=== PATIENT | male | born 1970 | race Caucasian/White ===

== ENCOUNTER 2020-09-18 10:06 | Emergency (ER) | payer OTHER, SELFPAY ==
[2020-09-18 10:08] VITALS: BP 133/90; PULSE 84; RESP 14; TEMP 36.2; O2SAT 99
--- NOTE | 2020-09-18 11:26 | ED_ITS ---
HPI - Wound/Laceration History of Present Illness HPI narrative: 49 yo male presents [facility] ED c/o laceration. He accidentally stabbed himself in the right thigh with a utility knife. Minimal pain. initially difficult to control bleeding, but stop now. Uncertain tetanus status. Related Data Allergies Allergy/AdvReac Type Severity Reaction Status Date / Time No Known Allergies Allergy Verified 09/18/20 11:13 Review of Systems Review of Systems: All systems reviewed & are unremarkable except as noted in HPI and below [facility], [facility] Social History Social History (Updated 09/25/20 @ 14:23 by Edwin Pittman MD) Smoking status: Never smoker Substance use: never Gender identity (if verbalized by the patient): Male Exam Const: General: healthy appearing, no acute distress and alert Orientation/consciousness: patient oriented x3 HENMT: Head: normal to inspection Neck: Neck: normal visual inspection Resp: Effort & Inspection: normal respiratory effort Auscultation: clear to auscultation bilaterally, no rales, no rhonchi and no wheezes Cardio: Jugular venous distension: no JVD Rate: regular rate Rhythm: regular rhythm Heart sounds: no murmurs Other: 2+ right DP Skin: General skin exam: normal color Other: 2 cm deep laceration to right thigh Neuro: General: patient oriented x3 and moves all extremities Speech: normal speech Other: distal motor and sensory intact Extrem: General: normal to inspection Psych: Appearance: well kempt Affect: normal affect Course Vital Signs Vital signs: Vital Signs Temperature 36.2 C L 09/18/20 10:08 Pulse Rate 84 09/18/20 10:08 Respiratory Rate 14 09/18/20 10:08 Blood Pressure 133/90 09/18/20 10:08 Pulse Oximetry 99 09/18/20 10:08 Temperature 36.2 C L 09/18/20 10:08 Pulse Rate 84 09/18/20 10:08 Respiratory Rate 14 09/18/20 10:08 Blood Pressure 133/90 09/18/20 10:08 Pulse Oximetry 99 09/18/20 10:08 Procedures Laceration Laceration 1: Site: lower extremity Side (If applicable): right Size (cm): 2 Description: linear Depth: simple, single layer Local Anesthetic: lidocaine 1% and with epi Amount of anesthesia used (mL): 4 Pre-repair: wound explored, irrigated extensively and deep structures intact ====== Skin Level ====== Skin layer closed with: vicryl Size (cm): 4-0 Number of sutures: 2 Technique: other (simple, subcuticular) ====== Subcutaneous Layer ====== Subcutaneous layer closed with: vicryl Size: 4-0 Number of sutures: 2 Technique: simple, interrupted ====== Muscle Layer ====== ====== Tendon Layer ====== Discharge Plan Discharge Clinical Impression: Laceration of thigh Patient Disposition: Home, Self-Care Condition: Stable Instructions: Laceration (ED) Follow-up/Referrals: PHYSICIAN NOT ON STAFF,NONSTAFF [Primary Care Provider] -
[2020-09-18] MEDS: LIDO 1%/EPINEPHRINE 1:100,000 20 ML VIAL INFILTRATE (11:48)
[2020-09-18] MEDS: TETANUS,DIPHTHERIA,AC PERTUSSIS ADULT (0.5 ML) BOOSTRIX IM (11:50)
== END 2020-09-18 13:17 | disposition home or self-care (01) ==
PROVIDERS: Emergency Provider Emergency Medicine
DX: S71.111A Laceration without foreign body, right thigh, initial encounter (principal); Z23 Encounter for immunization; W27.0XXA Contact with workbench tool, initial encounter
CPT/HCPCS: 12031; 90471; 90715; 99282